=== PATIENT | male | born 1945 | race Caucasian/White ===

== ENCOUNTER 2017-03-16 14:37 | Inpatient (IN) ==
[2017-03-16 15:29] LABS: Basophils % 0.4 %; Eosinophils # 0.1 K/mcL (0.0-0.6); Eosinophils % 0.6 %; Hemoglobin 16.2 g/dL (12.9-16.9); Immature Granulocytes % 0.4 % (0-4); Lymphocytes # 1.9 K/mcL (0.6-4.6); Lymphocytes % 20.2 %; Mean Corpuscular HGB Conc 35.2 g/dL (31.6-35.5); Mean Corpuscular Hemoglobin 32.9 pg (28.0-33.3); Mean Corpuscular Volume 93.3 fL (83.0-100.0); Mean Platelet Volume 11.1 fL (9.4-12.4); Monocytes # 0.7 K/mcL (0.0-1.3); Neutrophils # 6.7 K/mcL (1.6-8.9); Platelet Count 185 K/mcL (140-400); Red Blood Count 4.93 M/mcL (4.19-5.50); Red Cell Distribution Width 12.2 % (11.5-14.5); Segmented Neutrophils % 71.4 %
[2017-03-16 15:35] LABS: INR 1.2; Prothrombin Time 12.6 Seconds (9.4-12.1)
[2017-03-16] MEDS ORDERED: 0.9 % Sodium Chloride 1,000 ML IVC ONE (15:35)
[2017-03-16 15:37] LABS: Activated Partial Thrombo Time 39.3 Seconds (26.0-36.0)
[2017-03-16 15:45] LABS: BUN/Creatinine Ratio 15 (6-26); Blood Urea Nitrogen 21 mg/dL (8-26); Calcium 10.1 mg/dL (8.6-10.8); Carbon Dioxide 23 mEq/L (19-29); Chloride 106 mEq/L (98-109); Glucose 117 mg/dL (70-99); Osmolality,Calculated 292 (280-300); Potassium 4.5 mEq/L (3.5-4.5); Sodium 139 mEq/L (136-145); eGFR For African Americans > 60 (> 60); eGFR For Non-African Americans 51 (> 60)
[2017-03-16] MEDS ORDERED: *HR* Enoxaparin 120 MG/0.8 ML SYRINGE SQ STA (15:56)
--- NOTE | 2017-03-16 17:22 | Emergency Department Note ---
Disposition Clinical Impression: Atrial flutter Qualifiers: Atrial flutter type: atypical Qualified Code(s): I48.4 - Atypical atrial flutter Disposition: Admitted As Inpatient Condition: Good Referrals: Delmar Xavier MD [Primary Care Provider] - Forms: Work/School Release, ED Satisfaction Letter General Adult HPI - General Chief complaint: ED General Medical Stated complaint: increased heart rate Source: patient Limitations: no limitations Nursing Notes Reviewed: Yes Vital Signs Reviewed: Yes - History of Present Illness HPI Narrative: This is a 72-year-old male presents with concern for tachycardia. He actually has no chest pain or dyspnea but has a history of atrial fibrillation. He has had ablations in the past. He has required cardioversions in the past. He actually recently had a sinus surgery and was on xarelto but this was stopped in preparation of the surgery. Ultimately he was checking his blood pressure as he routinely does last evening and noticed that he was having tachycardia. His tachycardia was in the 120s. He knew he was in atrial fibrillation versus a flutter as this is what has happened in the past when his home blood pressure machine indicates tachycardia. He was asymptomatic but decided to come in since he was not on his arrival to. Pain Scale: 0 - Related Data Home Medications Medication Instructions Recorded Confirmed Aspirin Enteric Coated [Aspirin EC] 81 mg PO DAILY 03/16/17 03/16/17 Ergocalciferol (VITAMIN D2) 50,000 unit PO VARGAS 03/16/17 03/16/17 [Vitamin D2] Metoprolol Tartrate 75 mg PO BID 03/16/17 03/16/17 Multivit-Min/FA/Lycopen/Lutein 1 each PO DAILY 03/16/17 03/16/17 [Centrum Silver Men Tablet] Rosuvastatin Calcium [Crestor] 5 mg PO HS 03/16/17 03/16/17 Vit C/Vit E/Lutein/Min/[place]-3 1 each PO DAILY 03/16/17 03/16/17 [Ocuvite Softgel] Zolpidem [Ambien] 10 mg PO HS 03/16/17 03/16/17 Allergies Allergy/AdvReac Type Severity Reaction Status Date / Time metoclopramide [From Reglan] AdvReac Hyperactivi Verified 03/16/17 16:53 ty sertraline [From Zoloft] AdvReac Hyperactivi Verified 03/16/17 16:53 ty tamsulosin [From Flomax] AdvReac A-Fib Verified 03/16/17 16:53 All systems ED: reviewed and negative except as stated. Past Medical History - Past Medical History Medical history: Reports: atrial fibrillation, hyperlipidemia, hypertension Psychiatric history: Reports: no psych history - Social History Smoking Status: Never smoker Smokeless Tobacco Status: No Alcohol use: Reports: rarely Drug use: Reports: none Physical Exam Tachycardic rate, abnormal rhythm irregularly irregular - General Limitations: no limitations General appearance: alert - Head Head exam: atraumatic - Eye Eye exam: Present: normal appearance - ENT ENT exam: normal exam, normal oropharynx - Neck Neck exam: Present: normal inspection, full ROM - Chest Chest inspection: Present: normal inspection, symmetric chest wall rise - Respiratory Respiratory exam: Present: normal lung sounds bilaterally - Cardiovascular Cardiovascular exam: Present: systolic murmur. Absent: regular rate, normal rhythm - Abdominal Exam Abdominal exam: Present: soft, Non-Tender - Extremities Exam Extremities exam: Present: normal inspection - Back Exam Back exam: Present: normal inspection - Neurological Exam Neurological exam: Present: alert, oriented X3, CN II-XII intact - Psychiatric Psychiatric exam: Present: normal affect, normal mood - Skin Skin exam: Present: warm, dry Course Vital Signs Temperature 97.7 F 03/16/17 14:44 Pulse Rate 145 03/16/17 14:44 Respiratory Rate 16 03/16/17 14:44 Blood Pressure 129/82 03/16/17 14:44 O2 Sat by Pulse Oximetry 96 03/16/17 14:44 Temperature 97.7 F 03/16/17 14:44 Pulse Rate 126 03/16/17 16:46 Respiratory Rate 14 03/16/17 16:46 Blood Pressure 105/61 03/16/17 16:46 O2 Sat by Pulse Oximetry 96 03/16/17 16:46 Oxygen Delivery Oxygen Delivery Room Air Medical Decision Making - MDM Narrative Medical decision making narrative: A flutter with 21 conduction. There is no other ST segment abnormalities. He has no infectious driving causes. I did provide a 1 L normal saline bolus without improvement of heart rate. Ultimately I decided to place him on a Cardizem drip. He is not on any rate controlling agents at home. I did dose him with Lovenox. His creatinine is mildly elevated but his creatinine clearance is normal. Cardiac biomarkers are checked and were normal. EKG shows a atrial flutter with a 21 conduction at a rate of [address] segment changes. This is an abnormal EKG. His heart rate did come down with Cardizem at 5 mg per hour. I elected not to bolus him as he was not in true A. fib with RVR but having just moderate tachycardia as related to atrial flutter. He did improve with just a Cardizem drip. He will require admission for ongoing monitoring, telemetry, cardiac consultation. I did discuss extensively with the patient that we will proceed with admission. I discussed the case with the hospitalist team. He did take a standard aspirin this morning. - Medical Records Medical records reviewed: Yes I reviewed the patient's medical records. - Lab Data Lab results reviewed: Yes I reviewed the patient's lab results. Result diagrams: 03/16/17 15:21 03/16/17 15:21 Lab Results 03/16/17 03/16/17 03/16/17 Range/Units 15:21 15:21 15:21 WBC 9.4 (4.3-11.1) K/mcL RBC 4.93 (4.19-5.50) M/mcL Hgb 16.2 (12.9-16.9) g/dL Hct 46.0 (37.5-50.1) % MCV 93.3 (83.0-100.0) fL MCH 32.9 (28.0-33.3) pg MCHC 35.2 (31.6-35.5) g/dL RDW 12.2 (11.5-14.5) % Plt Count 185 (140-400) K/mcL MPV 11.1 (9.4-12.4) fL Immature Gran % 0.4 (0-4) % Seg Neutrophils % 71.4 % Lymphocytes % 20.2 % Monocytes % 7.0 % Eosinophils % 0.6 % Basophils % 0.4 % Neutrophils # 6.7 (1.6-8.9) K/mcL Lymphocytes # 1.9 (0.6-4.6) K/mcL Monocytes # 0.7 (0.0-1.3) K/mcL Eosinophils # 0.1 (0.0-0.6) K/mcL Basophils # 0.0 (0.0-0.2) K/mcL PT 12.6 H (9.4-12.1) Seconds INR 1.2 APTT 39.3 H (26.0-36.0) Seconds Sodium (136-145) mEq/L Potassium (3.5-4.5) mEq/L Chloride (98-109) mEq/L Carbon Dioxide (19-29) mEq/L BUN (8-26) mg/dL Creatinine (0.72-1.25) mg/dL Est GFR ( Amer) (> 60) Est GFR (Non-Af Amer) (> 60) BUN/Creatinine Ratio (6-26) Glucose (70-99) mg/dL Calculated Osmolality (280-300) Calcium (8.6-10.8) mg/dL Troponin I (0-0.03) ng/mL B-Natriuretic Peptide 292 H (0-100) pg/mL 03/16/17 03/16/17 Range/Units 15:21 15:21 WBC (4.3-11.1) K/mcL RBC (4.19-5.50) M/mcL Hgb (12.9-16.9) g/dL Hct (37.5-50.1) % MCV (83.0-100.0) fL MCH (28.0-33.3) pg MCHC (31.6-35.5) g/dL RDW (11.5-14.5) % Plt Count (140-400) K/mcL MPV (9.4-12.4) fL Immature Gran % (0-4) % Seg Neutrophils % % Lymphocytes % % Monocytes % % Eosinophils % % Basophils % % Neutrophils # (1.6-8.9) K/mcL Lymphocytes # (0.6-4.6) K/mcL Monocytes # (0.0-1.3) K/mcL Eosinophils # (0.0-0.6) K/mcL Basophils # (0.0-0.2) K/mcL PT (9.4-12.1) Seconds INR APTT (26.0-36.0) Seconds Sodium 139 (136-145) mEq/L Potassium 4.5 (3.5-4.5) mEq/L Chloride 106 (98-109) mEq/L Carbon Dioxide 23 (19-29) mEq/L BUN 21 (8-26) mg/dL Creatinine 1.37 H (0.72-1.25) mg/dL Est GFR ( Amer) > 60 (> 60) Est GFR (Non-Af Amer) 51 L (> 60) BUN/Creatinine Ratio 15 (6-26) Glucose 117 H (70-99) mg/dL Calculated Osmolality 292 (280-300) Calcium 10.1 (8.6-10.8) mg/dL Troponin I 0.01 (0-0.03) ng/mL B-Natriuretic Peptide (0-100) pg/mL - Radiology Data Radiology results reviewed: Yes I reviewed the patient's radiology results. - EKG Data EKG #1 EKG results narrative: EKG shows atrial flutter with 21 conduction and nonspecific abnormal ECG Critical Care Time Total Critical Care Time: 31 Attestation: I spent greater than 31 minutes providing acute care/critical care to this patient suffering from tachycardia and atrial flutter. He required chemical rate control as well as monitoring of ongoing tachycardia. Critical care time was excluding billable procedures. The patient will be admitted to the hospitalist team.
--- NOTE | 2017-03-16 17:49 | Internal Med History&Physical ---
Date of Encounter: 03/16/17 Time of Encounter: 17:46 Assessment and Plan (1) Atrial flutter Current visit: Yes Status: Acute long standing atrial flutter, has h/o ablation and cardioversion. currently EKG showing 2:1 conduction with HR of 127, just strated on cardizem drip will continu ethe cardizem drip, he needs to be restarted on AC, wa ssgiven a dose of lovenox at ED, will continue xarelto from [facility]. will consult cardio again for adjustment of his meds. no signs of infection or dehydration at this time Qualifiers: Atrial flutter type: atypical Qualified Code(s): I48.4 - Atypical atrial flutter (2) HTN (hypertension) Current visit: Yes Status: Acute controlled for now, continue home meds Qualifiers: Hypertension type: essential hypertension Qualified Code(s): I10 - Essential (primary) hypertension Internal Medicine - H&P: HPI Chief complaint: palpitation Admitted From: Home Plans for Post Hospital Care: Home History of present illness: Mr. Niño is a 72 year old male presents with concern for tachycardia. He actually has no chest pain or dyspnea but has a history of atrial fibrillation. He has had ablations in the past which was done last yr and he had cardioversion done on 01/19. He actually recently had a sinus surgery and was on xarelto but this was stopped in preparation of the surgery. Ultimately he was checking his blood pressure as he routinely does last evening and noticed that he was having tachycardia. His tachycardia was in the 120s. He was asymptomatic but decided to come in today. he denies sob or cough, no fever, no dysuria. EKG showed atrial flutter 2:1 conduction with RVR and was started on cardizem drip. Past Med Surg Social Fam HX - Past Medical History Medical history: atrial fibrillation, hyperlipidemia, hypertension Psychiatric history: no psych history - Social History Smoking Status: Never smoker Smokeless Tobacco Status: No Alcohol use: rarely Drug use: none Internal Medicine - H&P: Meds Aspirin Enteric Coated [Aspirin EC] 81 mg PO DAILY 03/16/17 [History] Ergocalciferol (VITAMIN D2) [Vitamin D2] 50,000 unit PO VARGAS 03/16/17 [History] Metoprolol Tartrate 75 mg PO BID 03/16/17 [History] Multivit-Min/FA/Lycopen/Lutein [Centrum Silver Men Tablet] 1 each PO DAILY 03/16 [History] Rosuvastatin Calcium [Crestor] 5 mg PO HS 03/16/17 [History] Vit C/Vit E/Lutein/Min/[place]-3 [Ocuvite Softgel] 1 each PO DAILY 03/16/17 [ History] Zolpidem [Ambien] 10 mg PO HS 03/16/17 [History] Allergies metoclopramide [From Reglan] Adverse Reaction (Verified 03/16/17 16:53) Hyperactivity sertraline [From Zoloft] Adverse Reaction (Verified 03/16/17 16:53) Hyperactivity tamsulosin [From Flomax] Adverse Reaction (Verified 03/16/17 16:53) A-Fib All Systems PM: A 10-system review of systems was performed and is negative for pertinent findings except as documented above in the HPI. - Constitutional Constitutional: as per HPI - EENT Eyes: no change in vision, no discharge, no pain, no photophobia Ears: no ear discharge, no ear pain, no tinnitus Nose, mouth and throat: no dysphagia, no nasal discharge, no neck pain, no sore throat - Cardiovascular Cardiovascular ROS IM: palpitations - Respiratory Respiratory: no cough, no dyspnea, no wheezing, no excessive phlegm production - Constitutional Vitals: Temp Pulse Resp BP Pulse Ox 97.7 F 126 14 97/72 97 03/16/17 14:44 03/16/17 17:32 03/16/17 17:32 03/16/17 17:32 03/16/17 17:32 General appearance: Present: A&O X 3, no acute distress Exam: neck- supple chest- b/lc lear, no added sounds CVS-s1 and s2, no mr/g/ abd- soft, non tender , bs are present ext- no edema neuro- no focal defecits Internal Med - H&P Results - Labs CBC & Chem 7: 03/16/17 15:21 03/16/17 15:21 Labs: Short CBC 03/16/17 Range/Units 15:21 WBC 9.4 (4.3-11.1) K/mcL Hgb 16.2 (12.9-16.9) g/dL Hct 46.0 (37.5-50.1) % Plt Count 185 (140-400) K/mcL Neutrophils # 6.7 (1.6-8.9) K/mcL BMP 03/16/17 15:21 Sodium 139 Potassium 4.5 Chloride 106 Carbon Dioxide 23 BUN 21 Creatinine 1.37 H Glucose 117 H Calcium 10.1 Cardiac Enzymes 03/16/17 Range/Units 15:21 Troponin I 0.01 (0-0.03) ng/mL - Impressions ITS Impressions Chest X-Ray 03/16/17 14:49 IMPRESSION: Stable exam without evidence for acute cardiopulmonary process. D/ / 03/16/2017 15:01:36 Ja Abraham MD / glory Interpreting Provider: Ja Abraham MD
[2017-03-16] MEDS ORDERED: Naloxone 0.4 MG/ML INJ IVP PRN (17:54)
[2017-03-17 04:43] LABS: Basophils # 0.1 K/mcL (0.0-0.2); Basophils % 0.7 %; Eosinophils # 0.2 K/mcL (0.0-0.6); Eosinophils % 2.2 %; Hematocrit 43.1 % (37.5-50.1); Hemoglobin 15.1 g/dL (12.9-16.9); Immature Granulocytes % 0.3 % (0-4); Lymphocytes # 2.7 K/mcL (0.6-4.6); Lymphocytes % 35.7 %; Mean Corpuscular Hemoglobin 33.2 pg (28.0-33.3); Mean Corpuscular Volume 94.7 fL (83.0-100.0); Mean Platelet Volume 11.8 fL (9.4-12.4); Monocytes # 0.7 K/mcL (0.0-1.3); Monocytes % 9.2 %; Platelet Count 159 K/mcL (140-400); Red Blood Count 4.55 M/mcL (4.19-5.50); Red Cell Distribution Width 12.4 % (11.5-14.5); Segmented Neutrophils % 51.9 %
[2017-03-17 04:59] LABS: BUN/Creatinine Ratio 17 (6-26); Blood Urea Nitrogen 21 mg/dL (8-26); Calcium 9.3 mg/dL (8.6-10.8); Carbon Dioxide 23 mEq/L (19-29); Chloride 108 mEq/L (98-109); Glucose 96 mg/dL (70-99); Magnesium 1.8 mg/dL (1.6-2.6); Osmolality,Calculated 289 (280-300); Phosphorous 3.2 mg/dL (2.3-4.7); Potassium 4.2 mEq/L (3.5-4.5); Sodium 138 mEq/L (136-145); eGFR For African Americans > 60 (> 60); eGFR For Non-African Americans 56 (> 60)
[2017-03-17] MEDS ORDERED: *HR* Metoprolol 5 MG/5 ML VIAL IVP ONE (05:19)
[2017-03-17] MEDS ORDERED: Magnesium Sulfate 2 GM in D5% in Water 100 ML IVPB ONE (06:45)
[2017-03-17] MEDS ORDERED: Aspirin Enteric Coated 81 MG Tablet PO SCH (09:00)
[2017-03-17] MEDS ORDERED: VIT C PO SCH (09:00)
[2017-03-17] MEDS ORDERED: LUTEIN PO SCH (09:00)
[2017-03-17] MEDS ORDERED: OMEGA E PO SCH (09:00)
[2017-03-17] MEDS ORDERED: Multivit/Ca/Min/Fe/FA 1 TAB TABLET PO SCH (09:00)
[2017-03-17] MEDS ORDERED: VIT E PO SCH (09:00)
[2017-03-17 11:54] VITALS: BP 118/84
[2017-03-17] MEDS ORDERED: Diltiazem CD (24hr) 120 MG CAPSULE PO SCH (14:15)
--- NOTE | 2017-03-17 14:16 | Cardiology Consult Note ---
Date of Encounter: 03/17/17 Time of Encounter: 14:00 Assessment and Plan (1) Atrial flutter Current Visit: Yes Status: Acute Long-standing history of afib/flutter s/p multiple ablations and cardioversions. Most recent CV January 2017 at [facility], follows with Dr. Singh. Presented with atrial flutter with RVR, states HR have been 120 for the past week. HR now controlled, 70's-80's upon exam. Will stop IV cardizem gtt and start oral cardizem. Continue Xarelto for AC--of note, had been on hold until now d/t sinus surgery mid February. Follow-up with Analytical Chemist at [facility] within a week. Qualifiers: Atrial flutter type: typical Qualified Code(s): I48.3 - Typical atrial flutter Discussion w patient/family: The assessment and plan as outlined above was discussed with the patient and/or family members who expressed understanding and agreement. All questions were answered. Thank you for involving us in the care of your patient. Please call with any questions. The patient will be discussed and reviewed with Dr. Angelica Cardoso; changes to be made accordingly. History of Present Illness Consult date: 03/17/17 Requesting physician: Sundar Bowie Consult reason: Aflutter Chief complaint: Aflutter History of present illness: Mr. Niño is a 72 year old male with PMH significant for CAD s/p PCI, BPH, Afib/flutter who presented to the ED with a 1 week history of palpitations and with reported HR >120. He reports doing yardwork last week and may have "over did it" at that time. He typically follows with [facility], Dr. Singh and has underwent several cardioversions and ablation for afib/flutter. Upon exam he has no complaints, he is wanting to be discharged. Past Med Surg Social Fam HX - Past Medical History Attestation: Yes The following information was validated with the patient. Source: patient Medical history: atrial fibrillation, coronary artery disease, hyperlipidemia, hypertension Psychiatric history: no psych history - Past Surgical History Surgical History: angioplasty/stent, other (multiple CV's, ablation) - Social History Smoking Status: Never smoker Smokeless Tobacco Status: No Alcohol use: rarely Drug use: none Medications and Allergies Aspirin Enteric Coated [Aspirin EC] 81 mg PO DAILY 03/16/17 [History] Ergocalciferol (VITAMIN D2) [Vitamin D2] 50,000 unit PO VARGAS 03/16/17 [History] Metoprolol Tartrate 75 mg PO BID 03/16/17 [History] Multivit-Min/FA/Lycopen/Lutein [Centrum Silver Men Tablet] 1 each PO DAILY 03/16 [History] Rosuvastatin Calcium [Crestor] 5 mg PO HS 03/16/17 [History] Vit C/Vit E/Lutein/Min/[place]-3 [Ocuvite Softgel] 1 each PO DAILY 03/16/17 [ History] Zolpidem [Ambien] 10 mg PO HS 03/16/17 [History] Allergies metoclopramide [From Reglan] Adverse Reaction (Verified 03/16/17 16:53) Hyperactivity sertraline [From Zoloft] Adverse Reaction (Verified 03/16/17 16:53) Hyperactivity tamsulosin [From Flomax] Adverse Reaction (Verified 03/16/17 16:53) A-Fib All Systems Review: A 10-system review of systems was performed and is negative for pertinent findings except as documented above in the HPI. - Cardiovascular Cardiovascular: as per HPI Physical Examination Vital Signs, Last 4 Hours Temp Pulse Resp BP Pulse Ox 03/17/17 11:46 97.6 F 77 17 118/84 97 General: Conversant, No Apparent Distress HEENT: Atraumatic, Normocephaly, Mucus Membranes Moist Cardiac: Other (irregulary irregular) Lungs: Normal Breath Sounds Neuro: Alert and responsive Abdomen: Soft Skin: No rashes noted on visualized skin Musculoskeletal: No Chest Wall Tenderness Extremities: No Edema, Normal Pulses Results 03/17/17 04:00 03/17/17 04:00 Lab Results 03/17/17 03/17/17 04:00 04:00 WBC 7.6 Hgb 15.1 Hct 43.1 Plt Count 159 Sodium 138 Potassium 4.2 Chloride 108 Carbon Dioxide 23 BUN 21 Creatinine 1.27 H Glucose 96 Calcium 9.3 Magnesium 1.8 Active Medications Aspirin (Aspirin Ec) 81 mg PO DAILY [facility] Stop: 09/16/17 09:01 Last Admin: 03/17/17 09:34 Dose: 81 mg Diltiazem HCl (Cardizem Cd) 120 mg PO DAILY [facility] Stop: 09/16/17 14:16 Metoprolol Tartrate (Lopressor) 75 mg PO BID [facility] Stop: 09/15/17 21:01 Last Admin: 03/17/17 06:48 Dose: 75 mg Multivitamins/Calcium (Thera M Plus) 1 tab PO DAILY [facility] Stop: 09/16/17 09:01 Last Admin: 03/17/17 09:34 Dose: 1 tab Naloxone HCl (Narcan) 0.4 mg IVP Q2MIN PRN PRN Reason: Opioid Reversal Stop: 09/15/17 17:55 Pharmacy Profile Note (Patient Taking Own Medication) 0 each PO HS [facility] Stop: 09/15/17 21:01 Last Admin: 03/16/17 21:54 Dose: Not Given Pharmacy Profile Note (Patient Taking Own Medication) 0 each PO DAILY [facility] Stop: 09/16/17 09:01 Last Admin: 03/17/17 13:19 Dose: Not Given Rivaroxaban (Xarelto) 20 mg PO 1700 [facility] Stop: 09/16/17 17:01 Zolpidem Tartrate (Ambien) 10 mg PO HS [facility] PRN Reason: Protocol Stop: 09/15/17 21:01 Last Admin: 03/16/17 21:54 Dose: 10 mg - Imaging and Cardiology Other Results: Telemetry: avg HR=98 aflutter. Now 70's-80's. - EKG Interpretation EKG results cardiology: personally reviewed Consult Discharge Plan - Plan Referrals: Delmar Xavier MD [Primary Care Provider] -
[2017-03-17] MEDS ORDERED: *HR* Rivaroxaban 10 MG TABLET PO SCH (17:00)
--- NOTE | 2017-03-17 17:21 | Discharge Summary ---
Date of Encounter: 03/18/17 Time of Encounter: 17:19 - Discharge Diagnosis (1) Atrial flutter Priority: Primary Status: Acute Qualifiers: Atrial flutter type: typical Qualified Code(s): I48.3 - Typical atrial flutter (2) HTN (hypertension) Priority: Secondary Status: Acute Qualifiers: Hypertension type: essential hypertension Qualified Code(s): I10 - Essential (primary) hypertension - Discharge Medications Prescriptions: Diltiazem CD (24hr) [Cardizem CD] 120 mg PO DAILY #30 cap.er.24h Rivaroxaban [Xarelto] 20 mg PO 1700 #60 tablet Home Medications: Aspirin Enteric Coated [Aspirin EC] 81 mg PO DAILY 03/16/17 [History] Ergocalciferol (VITAMIN D2) [Vitamin D2] 50,000 unit PO VARGAS 03/16/17 [History] Metoprolol Tartrate 75 mg PO BID 03/16/17 [History] Multivit-Min/FA/Lycopen/Lutein [Centrum Silver Men Tablet] 1 each PO DAILY 03/16 [History] Rosuvastatin Calcium [Crestor] 5 mg PO HS 03/16/17 [History] Vit C/Vit E/Lutein/Min/[place]-3 [Ocuvite Softgel] 1 each PO DAILY 03/16/17 [ History] Zolpidem [Ambien] 10 mg PO HS 03/16/17 [History] Diltiazem CD (24hr) [Cardizem CD] 120 mg PO DAILY #30 cap.er.24h 03/17/17 [Rx] Rivaroxaban [Xarelto] 20 mg PO 1700 #60 tablet 03/17/17 [Rx] Allergies/Adverse Reactions: Allergies metoclopramide [From Reglan] Adverse Reaction (Verified 03/16/17 16:53) Hyperactivity sertraline [From Zoloft] Adverse Reaction (Verified 03/16/17 16:53) Hyperactivity tamsulosin [From Flomax] Adverse Reaction (Verified 03/16/17 16:53) A-Fib Date of admission: 03/16/17 18:01 Primary care physician: Delmar Xavier MD Discharging clinician: Sundar Bowie Anticipated date of discharge: 03/17/17 - Patient Status Disposition: Home, Self-Care Condition: Good Functional capacity at discharge: independent ambulation Overall status at discharge: patient is back to baseline - Discharge Instructions Instructions: Diltiazem (By mouth), Atrial Flutter (DC), Chronic Hypertension ( DC) Follow Up With: Delmar Xavier MD [Primary Care Provider] - (Web request made.) - Diet and Activity Activity: resume usual activities as tolerated Diet: advance to your usual diet Interval History: Mr. Niño is a 72 year old male with PMH significant for CAD s/p PCI, BPH, Afib/flutter who presented to the ED with a 1 week history of palpitations and with reported HR >120. He reports doing yardwork last week and may have "over did it" at that time. He typically follows with [facility], Dr. Singh and has underwent several cardioversions and ablation for afib/flutter. Presented with atrial flutter with RVR, states HR have been 120 for the past week. HR now controlled, 70's-80's upon exam.he was treated with IV cardizem gtt and was transitioned to oral cardizem. was restarted on Xarelto for AC--of note, had been on hold until now d/t sinus surgery mid February. 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 Hospital course: Mr. Niño is a 72 year old male Time spent discussing smoking cessation with patient: more than 10 minutes - Time Spent with Patient Total time spent providing and/or coordinating discharge services: Greater than 30 minutes - Constitutional Vitals: Temp Pulse Resp BP Pulse Ox 97.6 F 77 17 118/84 97 03/17/17 11:46 03/17/17 11:46 03/17/17 11:46 03/17/17 11:46 03/17/17 11:46 General appearance: Present: A&O X 3, no acute distress Exam: HEENT: Atraumatic, Normocephaly, Mucus Membranes Moist Cardiac: Other (irregulary irregular) Lungs: Normal Breath Sounds Neuro: Alert and responsive Abdomen: Soft Skin: No rashes noted on visualized skin Musculoskeletal: No Chest Wall Tenderness Extremities: No Edema, Normal Pulses
--- NOTE | 2017-03-18 12:28 | Electrocardiograph Report ---
[address] [address] Test Date: 2017-03-16 Pat Name: Jovani Niño Department: 103 Room: [facility] Gender: M Carbon Cutter: : 1945 Requested By: Cory Serrano Order Number: [id number] Reading MD: Delmar Cardoso Measurements Intervals [place] Rate: 126 P: NV: 0 QRS: 37 QRSD: 90 T: 120 QT: 163 QTc: 237 Interpretive Statements ATRIAL FLUTTER/TACHYCARDIA WITH RAPID VENTRICULAR RESPONSE NONSPECIFIC ST \T\ T-WAVE ABNORMALITY INTERPRETATION BASED ON A DEFAULT AGE OF 40 YEARS Electronically Signed On 03-18-2017 12:27:45 EDT by Delmar Cardoso
== END 2017-03-17 18:05 | disposition home or self-care (01) | DRG 310 ==
LOC: 2NENU 14:37 → EMEROO 14:37 → 2NENU 19:35
PROVIDERS: ADMIT Internal Medicine Endocrinology, Diabetes & Metabolism; ATTEND Internal Medicine